=== PATIENT | female | born 1965 | race Caucasian/White ===

== ENCOUNTER 2017-08-06 19:54 | Inpatient (IN) ==
[2017-08-06] MEDS ORDERED: SODIUM CHLORIDE 0.9% 1,000 ML IV STA (20:54)
[2017-08-06] MEDS ORDERED: ONDANSETRON 4 MG/2 ML VIAL IV STA ×2 (20:56→23:49)
[2017-08-06 21:06] LABS: Apearance,Urine CLEAR (Clear); Bacteria,Urine Occasional /HPF (Few); Bilirubin,Urine Negative (Negative); Blood, Urine Negative (Negative); Glucose,Urine (UA) 50 mg/dL (Negative); Ketones,Urine 5 mg/dL (Negative); Mucus,Urine Moderate /LPF (Occasional); Nitrite,Urine Negative (Negative); Protein,Urine 100 MG/DL; RBC,Urine 7 /HPF (0-4); Squamous Epithelial Cell,Urine Occasional /HPF (0-10); Urine Color Amber (Yellow); Urine Specific Gravity 1.025 (1.001-1.035); Urine Urobilinogen < 2.0 EU/DL (0.2-1.0); WBC,Urine 2 /HPF (0-6)
[2017-08-06] MEDS ORDERED: ONDANSETRON 4 MG/2 ML VIAL ONE ×3 (21:26→23:45)
[2017-08-06 21:27] LABS: Magnesium 1.4 MG/DL (1.8-2.4)
[2017-08-06 21:31] LABS: Basophils % 0.3 % (0.0-0.8); Hematocrit 44.8 VOL% (35.7-47.0); Hemoglobin 15.3 GM/DL (12.0-16.0); Immature Granulocytes % 0.7 %; Immature Granulocytes Absolute 0.09 #; Lymphocytes # 0.9 10*3/uL (1.4-4.0); Lymphocytes % 6.8 % (21.3-54.2); Mean Corpuscular HGB Conc 34.2 GM/DL (32-36); Mean Corpuscular Hemoglobin 34 PG (27-34); Mean Corpuscular Volume 98.9 FL (87-102); Mean Platelet Volume 9.7 FL (9.6-12.0); Monocytes # 0.8 10*3/uL (0.11-0.8); Monocytes % 6.2 % (1.7-12.7); Neutrophils # 10.9 10*3/uL (1.4-7.4); Platelet Count 297 T/CUMM (130-400); Red Blood Count 4.53 MC/CUMM (3.8-5.5); Red Cell Distribution Width 12.7 % (9.3-17.3); White Blood Count 12.7 T/CUMM (4-12)
[2017-08-06] MEDS ORDERED: HYDROmorphone 2 MG/1 ML VIAL ONE (21:54)
[2017-08-06] MEDS ORDERED: HYDROmorphone 2 MG/1 ML VIAL IV STA ×2 (22:04→23:13)
[2017-08-06 22:11] LABS: Barbiturates Screen,Urine Negative (Negative); Benzodiazepines Screen,Urine Positive (Negative); Cannabinoid Screen,Urine Negative (Negative); Opiate Screen,Urine Negative (Negative); Phencyclidine Screen,Urine Negative (Negative)
[2017-08-06 23:01] LABS: Bilirubin,Total 1.2 MG/DL (0.2-1.0); Calcium 9.2 MG/DL (8.5-10.1); Osmolality,Calculated 272.1 MOS/KG (273-304); Potassium 3.7 MMOL/L (3.5-5.1)
[2017-08-07] MEDS ORDERED: ONDANSETRON 4 MG/2 ML VIAL IV PRN (00:55)
[2017-08-07] MEDS ORDERED: LEVOFLOXACIN INJ 750 MG in PREMIX 1 EACH IV STA (00:55)
[2017-08-07] MEDS ORDERED: MORPHINE 2 MG/1 ML SYRINGE IV PRN (00:55)
[2017-08-07] MEDS ORDERED: metroNIDAZOLE INJ 500 MG in PREMIX 1 EACH IV STA (00:55)
[2017-08-07] MEDS ORDERED: ACETAMINOPHEN 325 MG TABLET PO PRN (00:55)
[2017-08-07] MEDS: DEXTROSE 5% NACL 0.9% 1,000 ML IV SCH ×3 (01:10→16:58)
[2017-08-07] MEDS: HYDROmorphone 2 MG/1 ML VIAL IV PRN ×5 (01:12→21:20)
[2017-08-07] MEDS: PROMETHAZINE 25 MG/1 ML VIAL IM PRN ×2 (01:18→08:13)
[2017-08-07] MEDS ORDERED: THIAMINE INJ 100 MG, FOLIC ACID INJ 1 MG, MULTIVITAMIN INJ 10 ML in SODIUM CHLORIDE 0.9... IV ONE (06:24)
[2017-08-07] MEDS: DOCUSATE SODIUM 100 MG CAPSULE PO SCH ×2 (07:59→21:32)
[2017-08-07] MEDS: PANTOPRAZOLE 40 MG VIAL IV SCH (08:12)
[2017-08-07] MEDS ORDERED: SIMETHICONE CHEW 125 MG TABLET PO PRN (21:00)
[2017-08-07] MEDS: hydrOXYzine HCL 25 MG/1 ML VIAL IM PRN (22:19)
[2017-08-08] MEDS: DEXTROSE 5% NACL 0.9% 1,000 ML IV SCH ×2 (00:06→06:48)
[2017-08-08] MEDS: HYDROmorphone 2 MG/1 ML VIAL IV PRN ×3 (01:29→18:02)
[2017-08-08 06:53] LABS: Basophils # 0.1 10*3/uL (0.0-0.2); Basophils % 0.4 % (0.0-0.8); Eosinophils % 0.2 % (0.00-10.9); Hematocrit 40.9 VOL% (35.7-47.0); Immature Granulocytes % 0.7 %; Immature Granulocytes Absolute 0.09 #; Lymphocytes # 1.2 10*3/uL (1.4-4.0); Lymphocytes % 9.6 % (21.3-54.2); Mean Corpuscular HGB Conc 34.2 GM/DL (32-36); Mean Corpuscular Hemoglobin 34 PG (27-34); Mean Corpuscular Volume 99.5 FL (87-102); Mean Platelet Volume 9.8 FL (9.6-12.0); Monocytes # 0.9 10*3/uL (0.11-0.8); Monocytes % 7.1 % (1.7-12.7); Neutrophils # 10.2 10*3/uL (1.4-7.4); Platelet Count 188 T/CUMM (130-400); Red Blood Count 4.11 MC/CUMM (3.8-5.5); Red Cell Distribution Width 12.9 % (9.3-17.3); White Blood Count 12.4 T/CUMM (4-12)
[2017-08-08 07:27] LABS: Giant Platelets Few; Hypochromasia 1+; Platelet Estimate Normal
[2017-08-08 07:38] LABS: Albumin 2.9 G/DL (3.4-5.0); Bilirubin,Total 1.5 MG/DL (0.2-1.0); Calcium 7.1 MG/DL (8.5-10.1); Osmolality,Calculated 276.5 MOS/KG (273-304); Potassium 3.2 MMOL/L (3.5-5.1); Total Protein 5.6 G/DL (6.4-8.3)
[2017-08-08 07:51] LABS: Folate 19.1 NG/ML (5.4-24.0)
[2017-08-08] MEDS: SODIUM CHLOR 0.45% KCL 20 MEQ 20 MEQ/1,000 ML BAG IV SCH ×2 (09:30→21:21)
[2017-08-08] MEDS: DOCUSATE SODIUM 100 MG CAPSULE PO SCH ×2 (09:33→21:18)
[2017-08-08] MEDS: MULTIVITAMIN (BEROCCA) TABLET PO SCH (09:33)
[2017-08-08] MEDS: CEVIMELINE 30 MG PO SCH ×3 (09:34→21:19)
[2017-08-08] MEDS: POTASSIUM CHLORIDE 10 MEQ TABLET PO SCH ×2 (09:34→21:18)
[2017-08-08] MEDS: HYDROXYCHLOROQUINE 200 MG TABLET PO SCH ×2 (09:34→21:19)
[2017-08-08] MEDS: FOLIC ACID 0.4 MG TABLET PO SCH (09:34)
[2017-08-08] MEDS: FLUoxetine 20 MG CAPSULE PO SCH (09:34)
[2017-08-08] MEDS: azaTHIOprine 50 MG TABLET PO SCH (09:34)
[2017-08-08] MEDS: PANTOPRAZOLE 40 MG VIAL IV SCH (09:35)
[2017-08-08] MEDS: cycloSPORINE OPH EMUL 1 VIAL BOTH EYES SCH ×2 (09:35→21:19)
[2017-08-08] MEDS: ALPRAZolam 0.25 MG TABLET PO PRN (18:02)
[2017-08-08] MEDS: IRBESARTAN 150 MG TABLET PO SCH (21:18)
[2017-08-09 05:42] LABS: Basophils % 0.4 % (0.0-0.8); Eosinophils # 0.1 10*3/uL (0.0-0.87); Eosinophils % 0.7 % (0.00-10.9); Hematocrit 36.4 VOL% (35.7-47.0); Hemoglobin 12.8 GM/DL (12.0-16.0); Immature Granulocytes % 0.6 %; Immature Granulocytes Absolute 0.07 #; Lymphocytes # 1.2 10*3/uL (1.4-4.0); Lymphocytes % 11.1 % (21.3-54.2); Mean Corpuscular HGB Conc 35.2 GM/DL (32-36); Mean Corpuscular Hemoglobin 35 PG (27-34); Mean Corpuscular Volume 98.4 FL (87-102); Mean Platelet Volume 9.8 FL (9.6-12.0); Monocytes % 9.4 % (1.7-12.7); Neutrophils # 8.7 10*3/uL (1.4-7.4); Neutrophils % 77.8 % (38.7-73.9); Platelet Count 169 T/CUMM (130-400); Red Cell Distribution Width 12.7 % (9.3-17.3); White Blood Count 11.1 T/CUMM (4-12)
[2017-08-09 06:20] LABS: Band Neutrophils 1 % (0-10); Eosinophils 2 % (0-10); Hypochromasia 1+; Lymphocytes 12 % (20-55); Platelet Estimate Normal; Segmented Neutrophils 79 % (50-85); Total Cells Counted 100
[2017-08-09 06:21] LABS: Giant Platelets Few; Ovalocytes Slight
[2017-08-09 06:25] LABS: Albumin 2.8 G/DL (3.4-5.0); Bilirubin,Total 2.1 MG/DL (0.2-1.0); Calcium 7.4 MG/DL (8.5-10.1); Magnesium 1.6 MG/DL (1.8-2.4); Osmolality,Calculated 270.7 MOS/KG (273-304); Potassium 3.5 MMOL/L (3.5-5.1); Risk Ratio 2.36; Thyroid Stimulating Hormone 3.11 uIU/ml (0.358-3.74); Total Protein 5.5 G/DL (6.4-8.3); VLDL CHOLESTEROL 12.6 MG/DL
[2017-08-09] MEDS: ALPRAZolam 0.25 MG TABLET PO PRN (07:10)
[2017-08-09] MEDS ORDERED: LORazepam 2 MG/1 ML VIAL IV ONE ×2 (07:11→15:00)
[2017-08-09] MEDS: SODIUM CHLOR 0.45% KCL 20 MEQ 20 MEQ/1,000 ML BAG IV SCH ×2 (07:28→20:59)
[2017-08-09] MEDS ORDERED: LORazepam 2 MG/1 ML VIAL IV PRN (07:58)
[2017-08-09] MEDS: PANTOPRAZOLE 40 MG VIAL IV SCH (08:53)
[2017-08-09] MEDS: POTASSIUM CHLORIDE 10 MEQ TABLET PO SCH ×2 (08:54→21:24)
[2017-08-09] MEDS: MAGNESIUM CHLORIDE 64 MG TABLET PO SCH ×2 (08:54→21:24)
[2017-08-09] MEDS: FOLIC ACID 0.4 MG TABLET PO SCH (08:54)
[2017-08-09] MEDS: MULTIVITAMIN (BEROCCA) TABLET PO SCH (08:54)
[2017-08-09] MEDS: CEVIMELINE 30 MG PO SCH ×2 (08:55→15:09)
[2017-08-09] MEDS: HYDROXYCHLOROQUINE 200 MG TABLET PO SCH ×2 (08:55→21:24)
[2017-08-09] MEDS: DOCUSATE SODIUM 100 MG CAPSULE PO SCH ×2 (08:55→21:24)
[2017-08-09] MEDS: FLUoxetine 20 MG CAPSULE PO SCH (08:55)
[2017-08-09] MEDS: CLORAZEPATE 7.5 MG TABLET PO SCH ×2 (08:55→16:44)
[2017-08-09] MEDS: azaTHIOprine 50 MG TABLET PO SCH (08:55)
[2017-08-09] MEDS: cycloSPORINE OPH EMUL 1 VIAL BOTH EYES SCH (08:56)
[2017-08-09] MEDS ORDERED: CLORAZEPATE 7.5 MG TABLET PO SCH (09:00)
[2017-08-09] MEDS ORDERED: MAGNESIUM SULF RIDER 2 GM in PREMIX 1 EACH IV ONE (09:00)
[2017-08-09] MEDS ORDERED: HALOPERIDOL 5 MG/ML AMP IV ONE ×2 (12:12→15:30)
[2017-08-09] MEDS: LORazepam 2 MG/1 ML VIAL IV PRN ×5 (15:45→18:24)
[2017-08-09] MEDS: IRBESARTAN 150 MG TABLET PO SCH (21:24)
[2017-08-10] MEDS: CEVIMELINE 30 MG PO SCH ×4 (00:20→20:08)
[2017-08-10] MEDS: CLORAZEPATE 7.5 MG TABLET PO SCH ×3 (00:20→17:00)
[2017-08-10] MEDS: cycloSPORINE OPH EMUL 1 VIAL BOTH EYES SCH ×3 (00:20→20:07)
[2017-08-10] MEDS: LORazepam 2 MG/1 ML VIAL IV PRN ×2 (01:42→02:42)
[2017-08-10 04:56] LABS: Basophils # 0.1 10*3/uL (0.0-0.2); Basophils % 0.6 % (0.0-0.8); Eosinophils # 0.2 10*3/uL (0.0-0.87); Eosinophils % 1.5 % (0.00-10.9); Hematocrit 36.7 VOL% (35.7-47.0); Hemoglobin 12.6 GM/DL (12.0-16.0); Immature Granulocytes % 1.5 %; Immature Granulocytes Absolute 0.16 #; Lymphocytes % 9.6 % (21.3-54.2); Mean Corpuscular HGB Conc 34.3 GM/DL (32-36); Mean Corpuscular Hemoglobin 34 PG (27-34); Mean Corpuscular Volume 98.7 FL (87-102); Mean Platelet Volume 9.5 FL (9.6-12.0); Monocytes # 1.3 10*3/uL (0.11-0.8); Neutrophils % 74.8 % (38.7-73.9); Platelet Count 190 T/CUMM (130-400); Red Blood Count 3.72 MC/CUMM (3.8-5.5); Red Cell Distribution Width 12.9 % (9.3-17.3); White Blood Count 10.6 T/CUMM (4-12)
[2017-08-10 05:31] LABS: Albumin 2.7 G/DL (3.4-5.0); Bilirubin,Total 1.7 MG/DL (0.2-1.0); Calcium 7.5 MG/DL (8.5-10.1); Magnesium 2.2 MG/DL (1.8-2.4); Osmolality,Calculated 271.7 MOS/KG (273-304); Potassium 3.7 MMOL/L (3.5-5.1); Total Protein 5.7 G/DL (6.4-8.3)
[2017-08-10 06:29] LABS: Lymphocytes 11 % (20-55); Microcytosis 1+; Segmented Neutrophils 81 % (50-85); Total Cells Counted 100
[2017-08-10 06:30] LABS: Platelet Estimate Adequate
[2017-08-10] MEDS: SODIUM CHLOR 0.45% KCL 20 MEQ 20 MEQ/1,000 ML BAG IV SCH ×2 (07:25→21:35)
[2017-08-10] MEDS: MAGNESIUM CHLORIDE 64 MG TABLET PO SCH ×2 (11:22→20:08)
[2017-08-10] MEDS: FOLIC ACID 0.4 MG TABLET PO SCH (11:26)
[2017-08-10] MEDS: MULTIVITAMIN (BEROCCA) TABLET PO SCH (11:26)
[2017-08-10] MEDS: FLUoxetine 20 MG CAPSULE PO SCH (11:27)
[2017-08-10] MEDS: HYDROXYCHLOROQUINE 200 MG TABLET PO SCH ×2 (11:27→20:08)
[2017-08-10] MEDS: POTASSIUM CHLORIDE 10 MEQ TABLET PO SCH ×2 (11:27→20:08)
[2017-08-10] MEDS: azaTHIOprine 50 MG TABLET PO SCH (11:27)
[2017-08-10] MEDS: DOCUSATE SODIUM 100 MG CAPSULE PO SCH ×2 (11:28→20:08)
[2017-08-10] MEDS: PANTOPRAZOLE 40 MG VIAL IV SCH (11:28)
[2017-08-10] MEDS ORDERED: PROPOFOL 1,000 MG/100 ML BOTTLE IV ONE (14:00)
[2017-08-10] MEDS: IRBESARTAN 150 MG TABLET PO SCH (20:08)
[2017-08-11] MEDS: SODIUM CHLOR 0.45% KCL 20 MEQ 20 MEQ/1,000 ML BAG IV SCH ×2 (02:58→09:12)
[2017-08-11] MEDS: CLORAZEPATE 7.5 MG TABLET PO SCH ×3 (02:58→17:47)
[2017-08-11] MEDS: FOLIC ACID 0.4 MG TABLET PO SCH (09:03)
[2017-08-11] MEDS: azaTHIOprine 50 MG TABLET PO SCH (09:03)
[2017-08-11] MEDS: MAGNESIUM CHLORIDE 64 MG TABLET PO SCH ×2 (09:04→21:42)
[2017-08-11] MEDS: MULTIVITAMIN (BEROCCA) TABLET PO SCH (09:04)
[2017-08-11] MEDS: PANTOPRAZOLE 40 MG VIAL IV SCH (09:04)
[2017-08-11] MEDS: HYDROXYCHLOROQUINE 200 MG TABLET PO SCH ×2 (09:04→21:43)
[2017-08-11] MEDS: FLUoxetine 20 MG CAPSULE PO SCH (09:04)
[2017-08-11] MEDS: CEVIMELINE 30 MG PO SCH ×3 (09:04→22:23)
[2017-08-11] MEDS: DOCUSATE SODIUM 100 MG CAPSULE PO SCH ×2 (09:04→21:43)
[2017-08-11] MEDS: POTASSIUM CHLORIDE 10 MEQ TABLET PO SCH ×2 (09:04→21:43)
[2017-08-11] MEDS: cycloSPORINE OPH EMUL 1 VIAL BOTH EYES SCH ×2 (09:11→22:23)
[2017-08-11] MEDS: IRBESARTAN 150 MG TABLET PO SCH (21:42)
[2017-08-12] MEDS: hydrOXYzine HCL 25 MG/1 ML VIAL IM PRN (00:02)
[2017-08-12] MEDS: CLORAZEPATE 7.5 MG TABLET PO SCH ×6 (01:11→21:30)
[2017-08-12 06:34] LABS: Basophils % 0.3 % (0.0-0.8); Eosinophils # 0.3 10*3/uL (0.0-0.87); Eosinophils % 2.9 % (0.00-10.9); Hemoglobin 14.5 GM/DL (12.0-16.0); Immature Granulocytes % 0.9 %; Immature Granulocytes Absolute 0.09 #; Lymphocytes # 2.5 10*3/uL (1.4-4.0); Lymphocytes % 23.8 % (21.3-54.2); Mean Corpuscular HGB Conc 34.5 GM/DL (32-36); Mean Corpuscular Hemoglobin 34 PG (27-34); Mean Corpuscular Volume 99.3 FL (87-102); Mean Platelet Volume 9.3 FL (9.6-12.0); Monocytes # 2.1 10*3/uL (0.11-0.8); Monocytes % 19.9 % (1.7-12.7); Neutrophils # 5.5 10*3/uL (1.4-7.4); Neutrophils % 52.2 % (38.7-73.9); Platelet Count 327 T/CUMM (130-400); Red Blood Count 4.23 MC/CUMM (3.8-5.5); Red Cell Distribution Width 12.8 % (9.3-17.3); White Blood Count 10.4 T/CUMM (4-12)
[2017-08-12 07:05] LABS: Bilirubin,Total 1.4 MG/DL (0.2-1.0); Calcium 8.7 MG/DL (8.5-10.1); Osmolality,Calculated 271.8 MOS/KG (273-304); Potassium 4.1 MMOL/L (3.5-5.1); Risk Ratio 4.1; Total Protein 6.6 G/DL (6.4-8.3); VLDL CHOLESTEROL 17.4 MG/DL
[2017-08-12 07:06] LABS: Band Neutrophils 3 % (0-10); Eosinophils 2 % (0-10); Lymphocytes 32 % (20-55); Segmented Neutrophils 55 % (50-85); Total Cells Counted 100
[2017-08-12 07:07] LABS: Macrocytosis 2+; Platelet Estimate Normal
[2017-08-12] MEDS: CEVIMELINE 30 MG PO SCH ×3 (10:40→21:30)
[2017-08-12] MEDS: MULTIVITAMIN (BEROCCA) TABLET PO SCH (10:40)
[2017-08-12] MEDS: PANTOPRAZOLE 40 MG VIAL IV SCH (10:40)
[2017-08-12] MEDS: MAGNESIUM CHLORIDE 64 MG TABLET PO SCH ×2 (10:41→21:30)
[2017-08-12] MEDS: FOLIC ACID 0.4 MG TABLET PO SCH (10:41)
[2017-08-12] MEDS: POTASSIUM CHLORIDE 10 MEQ TABLET PO SCH ×2 (10:41→21:30)
[2017-08-12] MEDS: DOCUSATE SODIUM 100 MG CAPSULE PO SCH ×2 (10:41→21:30)
[2017-08-12] MEDS: HYDROXYCHLOROQUINE 200 MG TABLET PO SCH ×2 (10:41→21:30)
[2017-08-12] MEDS: azaTHIOprine 50 MG TABLET PO SCH (10:42)
[2017-08-12] MEDS: cycloSPORINE OPH EMUL 1 VIAL BOTH EYES SCH ×2 (10:42→21:29)
[2017-08-12] MEDS: [UNRECOGNIZED DRUG - OTHER] PO SCH (10:42)
[2017-08-12] MEDS: FLUoxetine 20 MG CAPSULE PO SCH (10:42)
[2017-08-12] MEDS: SODIUM CHLOR 0.45% KCL 20 MEQ 20 MEQ/1,000 ML BAG IV SCH ×2 (16:46→16:47)
[2017-08-12] MEDS: IRBESARTAN 150 MG TABLET PO SCH (21:30)
[2017-08-13] MEDS: SODIUM CHLOR 0.45% KCL 20 MEQ 20 MEQ/1,000 ML BAG IV SCH ×2 (01:17→12:49)
[2017-08-13 05:14] LABS: Basophils # 0.1 10*3/uL (0.0-0.2); Eosinophils # 0.3 10*3/uL (0.0-0.87); Eosinophils % 3.1 % (0.00-10.9); Hematocrit 38.9 VOL% (35.7-47.0); Hemoglobin 13.7 GM/DL (12.0-16.0); Immature Granulocytes % 1.2 %; Lymphocytes % 24.2 % (21.3-54.2); Mean Corpuscular HGB Conc 35.2 GM/DL (32-36); Mean Corpuscular Hemoglobin 34 PG (27-34); Mean Corpuscular Volume 97.7 FL (87-102); Mean Platelet Volume 9.2 FL (9.6-12.0); Monocytes # 1.5 10*3/uL (0.11-0.8); Monocytes % 17.7 % (1.7-12.7); Neutrophils # 4.4 10*3/uL (1.4-7.4); Neutrophils % 52.8 % (38.7-73.9); Platelet Count 343 T/CUMM (130-400); Red Blood Count 3.98 MC/CUMM (3.8-5.5); White Blood Count 8.3 T/CUMM (4-12)
[2017-08-13 05:45] LABS: Osmolality,Calculated 273.7 MOS/KG (273-304); Potassium 4.2 MMOL/L (3.5-5.1)
[2017-08-13 05:48] LABS: Risk Ratio 4.55; VLDL CHOLESTEROL 19.4 MG/DL
[2017-08-13 06:16] LABS: Eosinophils 3 % (0-10); Hypochromasia Slight; Lymphocytes 35 % (20-55); Platelet Estimate Adequate; Segmented Neutrophils 55 % (50-85); Total Cells Counted 100
[2017-08-13] MEDS: CLORAZEPATE 7.5 MG TABLET PO SCH ×2 (09:33→13:31)
[2017-08-13] MEDS: HYDROXYCHLOROQUINE 200 MG TABLET PO SCH (09:33)
[2017-08-13] MEDS: MAGNESIUM CHLORIDE 64 MG TABLET PO SCH (09:33)
[2017-08-13] MEDS: MULTIVITAMIN (BEROCCA) TABLET PO SCH (09:34)
[2017-08-13] MEDS: FOLIC ACID 0.4 MG TABLET PO SCH (09:34)
[2017-08-13] MEDS: FLUoxetine 20 MG CAPSULE PO SCH (09:34)
[2017-08-13] MEDS: POTASSIUM CHLORIDE 10 MEQ TABLET PO SCH (09:35)
[2017-08-13] MEDS: DOCUSATE SODIUM 100 MG CAPSULE PO SCH (09:35)
[2017-08-13] MEDS: azaTHIOprine 50 MG TABLET PO SCH (09:35)
[2017-08-13] MEDS: CEVIMELINE 30 MG PO SCH (09:35)
[2017-08-13] MEDS: PANTOPRAZOLE 40 MG VIAL IV SCH (09:36)
[2017-08-13] MEDS: cycloSPORINE OPH EMUL 1 VIAL BOTH EYES SCH (09:36)
[2017-08-13] MEDS: [UNRECOGNIZED DRUG - OTHER] PO SCH (09:40)
[2017-08-13 10:58] VITALS: BP 132/84
== END 2017-08-13 12:14 | disposition home or self-care (01) | DRG 439 ==
LOC: N.ED 19:54 → N.EDINP 23:55 → N.2E 08-07 00:14 → N.ICU 08-09 15:44 → N.3E 08-11 19:54
PROVIDERS: ADMIT Family Medicine; ATTEND Family Medicine